=== PATIENT | female | born 1970 | race Caucasian/White ===

== ENCOUNTER → 2020-12-28 14:19 | Outpatient (CLI) | payer BC, SELFPAY ==
[2020-12-28 14:30] LABS: Basophils # 0.1 K/mm3 (0-0.2); Basophils % 1.1 % (0.1-2.0); Eosinophils # 0.1 K/mm3 (0.0-0.4); Eosinophils % 1.3 % (0.1-12.0); Lymphocytes # 1.8 K/mm3 (0.7-4.5); Lymphocytes % 28.2 % (10-50); Mean Corpuscular Hemoglobin 30.2 pg (27.0-31.2); Mean Corpuscular Volume 94.4 fl (81-99); Mean Platelet Volume 8.9 fl (7.4-10.4); Monocytes # 0.3 K/mm3 (0.1-1.0); Monocytes % 4.4 % (1.7-9.3); Platelet Count 322 K/mm3 (142-424); Red Blood Count 4.98 M/mm3 (4.20-5.40); Red Cell Distribution Width 13.1 % (11.5-17.5); White Blood Count 6.2 K/mm3 (4.8-10.8)
[2020-12-28 14:34] LABS: Chloride 105 mmol/L (98-107); Sodium 139 mmol/L (136-145)
[2020-12-28 14:35] LABS: Potassium 4.3 mmoL/L (3.5-5.1)
[2020-12-28 14:37] LABS: Alanine Aminotransferase 19 U/L (12-78); Albumin Level 4.5 g/dl (3.5-5.0); Albumin/Globulin Ratio 1.6 (1.1-1.8); Alkaline Phosphatase 66 U/L (38-126); Anion Gap 13.3 mEq/L (5-15); Aspartate Amino Transferase 29 U/L (14-36); Bilirubin,Total 0.3 mg/dl (0.2-1.3); Blood Urea Nitrogen 9 mg/dl (7-17); Carbon Dioxide 25 mmol/L (22.0-30.0); Estimated Glomerular Filt Rate 89 ml/min (>60); GFR (African American) 108 ML/MIN (>60); Globulin 2.8 g/dL (1.3-3.2); Total Protein,Serum 7.3 g/dl (6.3-8.2)
[2020-12-28 14:38] LABS: Calcium 9.5 mg/dl (8.4-10.2); Chol/HDL Ratio 2.6 (1-3.5); Cholesterol 189 mg/dl (140-200); Glucose 94 mg/dl (74-100); HDL Cholesterol 73 mg/dl (40-60); Triglycerides 196 mg/dl (30-150); VLDL Cholesterol 39 mg/dL (0-40)
[2020-12-28 14:49] LABS: Direct LDL Cholesterol 88.54 mg/dL (100-129)
[2020-12-28 14:56] LABS: Hemoglobin A1C 5.3 % (4.0-6.0)
[2020-12-28 15:08] LABS: Thyroid Stimulating Hormone 4.72 uIU/mL (0.465-4.68)
[2020-12-28 21:43] LABS: 25-OH Vitamin D, Total 31.3 ng/mL (30-100)
== END ==
PROVIDERS: Visit Provider Family Medicine
DX: Z00.00 Encounter for general adult medical examination without abnormal findings (principal); Z76.89 Persons encountering health services in other specified circumstances; I10 Essential (primary) hypertension
CPT/HCPCS: 80053; 80061; 82306; 83036; 84443; 85025

== ENCOUNTER → 2021-11-11 14:10 | Outpatient (CLI) | payer BC, SELFPAY ==
[2021-11-11 18:55] LABS: Basophils # 0.1 K/mm3 (0-0.2); Basophils % 1.3 % (0.1-2.0); Eosinophils # 0.1 K/mm3 (0.0-0.4); Eosinophils % 1.5 % (0.1-12.0); Hematocrit 45.8 % (37.0-47.0); Hemoglobin 15.1 g/dL (12.2-16.2); Lymphocytes # 2.1 K/mm3 (0.7-4.5); Mean Corpuscular Volume 93.8 fl (81-99); Mean Platelet Volume 10.2 fl (7.4-10.4); Monocytes # 0.2 K/mm3 (0.1-1.0); Monocytes % 3.6 % (1.7-9.3); Neutrophils # 3.5 K/mm3 (1.8-7.8); Neutrophils % 58.6 % (37.0-80.0); Platelet Count 303 K/mm3 (142-424); Red Blood Count 4.88 M/mm3 (4.20-5.40); Red Cell Distribution Width 13.3 % (11.5-17.5)
[2021-11-11 19:32] LABS: Alanine Aminotransferase 14 U/L (12-78); Albumin Level 4.3 g/dl (3.5-5.0); Albumin/Globulin Ratio 1.7 (1.1-1.8); Alkaline Phosphatase 61 U/L (38-126); Anion Gap 16.5 mEq/L (5-15); Aspartate Amino Transferase 27 U/L (14-36); Bilirubin,Total 0.4 mg/dl (0.2-1.3); Blood Urea Nitrogen 11 mg/dl (7-17); Carbon Dioxide 24 mmol/L (22.0-30.0); Chloride 101 mmol/L (98-107); Cholesterol 158 mg/dl (140-200); Estimated Glomerular Filt Rate 67 ml/min (>60); GFR (African American) 81 ML/MIN (>60); Globulin 2.6 g/dL (1.3-3.2); Glucose 96 mg/dl (74-100); HDL Cholesterol 52 mg/dl (40-60); Potassium 4.5 mmoL/L (3.5-5.1); Sodium 137 mmol/L (136-145); Total Protein,Serum 6.9 g/dl (6.3-8.2); Triglycerides 112 mg/dl (30-150); VLDL Cholesterol 22 mg/dL (0-40)
[2021-11-11 19:43] LABS: Direct LDL Cholesterol 71.37 mg/dL (100-129)
[2021-11-11 19:50] LABS: T4 (Thyroxine) 10.7 ug/dl (5.53-11.0)
[2021-11-11 20:03] LABS: Thyroid Stimulating Hormone 1.08 uIU/mL (0.465-4.68)
[2021-11-11 21:42] LABS: Hemoglobin A1C 5.3 % (4.0-6.0)
== END ==
PROVIDERS: PCP Family Medicine; Visit Provider Family Medicine
DX: E78.5 Hyperlipidemia, unspecified (principal); Z79.899 Other long term (current) drug therapy
CPT/HCPCS: 80053; 80061; 83036; 84436; 84443; 85025

== ENCOUNTER → 2021-11-18 10:41 | Outpatient (CLI) | payer BC, SELFPAY ==
--- NOTE | 2021-11-18 10:41 | MM_ITS ---
PROCEDURE INFORMATION: Exam: Bilateral Screening 3D Mammography Exam date and time: 11/18/2021 10:40 AM Age: 51 years old Clinical indication: Screening examination TECHNIQUE: Imaging protocol: Bilateral Screening tomosynthesis and 2D mammography including computer-aided detection (CAD) when performed. COMPARISON: 2D SCREENING MAMMOGRAM, BILATERAL 05/22/2020 3:45 PM FINDINGS: MAMMOGRAPHY: Breast composition: The breasts are almost entirely fatty. Mass: None. Architectural distortion: None. Calcifications: No suspicious calcifications. Asymmetric density: None. Skin thickening: None. Axillary adenopathy: None. IMPRESSION: No mammographic evidence of malignancy. Annual screening is recommended unless otherwise clinically indicated. ASSESSMENT: BI-RADS Category 1: Negative
== END ==
PROVIDERS: PCP Family Medicine; Visit Provider Family Medicine
DX: Z12.31 Encounter for screening mammogram for malignant neoplasm of breast (principal)
CPT/HCPCS: 77063; 77067

== ENCOUNTER → 2021-12-17 13:44 | Outpatient (CLI) | payer BC, SELFPAY | PROVIDERS: PCP Family Medicine; Visit Provider Surgery | DX: Z20.822 Contact with and (suspected) exposure to COVID-19 (principal) ==

== ENCOUNTER 2021-12-20 10:56 | Day surgery (SDC) | payer BC, SELFPAY ==
[2021-12-19 11:20] VITALS: BMI 30.2
[2021-12-20 11:05] VITALS: BP 144/75; PULSE 76; RESP 18; TEMP 36.4; O2SAT 99
[2021-12-20 11:27] VITALS: O2SAT 99
--- NOTE | 2021-12-20 11:27 | P.PN_ITS ---
PF[facility] PFS Medical History Cervical cancer Endometriosis History of gastroesophageal reflux (GERD) Hypertension Hypothyroid Polyp, vocal cord Surgical History H/O total hysterectomy [place] teeth removed Family History Mother Liver cancer Father Diabetes Social History Smoking Status: Former smoker alcohol intake: never substance use type: denies use current occupational status: unemployed Travel in the last 8 weeks: None caffeine: Yes [facility] Anesthesia Checklist Patient Identification Patient Identification: Arm Band Structural Data Admitted From: Home Planned Operative Procedure/s: colonoscopy Consent for Planned Operative Procedure(s) Verified: Yes Verified Documents: Surgical Consent and History and Physical NPO Status Verified Time NPO: 00:00 Additional verifications Anesthesia Reactions: No Airway Assessment C-Spine Mobility Assessed: Yes TMJ Mobility Assessed: Yes Dentition: Good Dentition Neurological Assessment Level of Consciousness: Awake and Alert Anesthesia Plan Anesthesia Risk discussed: Yes Anesthesia Plan: Verified ASA Class: II Anesthesia Type: MAC
[2021-12-20 12:14] VITALS: BP 106/60; PULSE 76; RESP 17; TEMP 36.2; O2SAT 95
--- NOTE | 2021-12-20 12:20 | HMH.SCOPE ---
Procedure: Date: 12/20/21 Patient Date of :: 1970 Procedure Performed:: Colonoscopy with polypectomy Indications:: Screening Performing Provider:: Giovani Alan MD Referring Provider:: Dr. Alfonso Sedation:: Monitored anesthesia care Procedure:: After informed consent was obtained the patient was taken to the endoscopy suite. Sedation ensued after the patient was transferred to the left lateral decubitus position. Pulse, blood pressure, and oxygen saturation were monitored throughout the procedure. Digital rectal exam revealed no significant abnormality. The colonoscope was placed in position. The entire colon was evaluated. The colonoscope was carefully removed and the patient was transferred to recovery in stable condition. Please see findings and specimens below for detail. Findings:: Bowel preparation moderate Mild scattered diverticulosis Significant lack of relaxation Fairly tortuous sigmoid colon Polyp at 15 cm Specimens:: Polyp at 15 cm (cold snare) Recommendations:: Timing of repeat colonoscopy is pending pathology but will likely be between 2-3 years. Complications:: No immediate Estimated blood obtained (mL): 1
[2021-12-20 12:24] VITALS: BP 108/68; PULSE 59; RESP 17; O2SAT 96
[2021-12-20 12:34] VITALS: BP 105/58; PULSE 71; RESP 18; O2SAT 95
[2021-12-20 12:44] VITALS: BP 126/82; PULSE 62; RESP 18; O2SAT 96
== END 2021-12-20 12:44 | disposition home or self-care (01) ==
PROVIDERS: PCP Family Medicine; Visit Provider Surgery
PROC: 0DJD8ZZ Inspection of Lower Intestinal Tract, Via Natural or Artificial Opening Endoscopic (ICD-10-PCS; CPT 45385; principal; 2021-12-20 12:30)
DX: Z12.11 Encounter for screening for malignant neoplasm of colon (principal); K63.5 Polyp of colon; Z79.899 Other long term (current) drug therapy
CPT/HCPCS: 45385; J2704

== ENCOUNTER → 2022-06-19 14:25 | Outpatient (CLI) | payer BC, SELFPAY ==
[2022-06-19 15:48] LABS: Thyroid Stimulating Hormone 2.37 uIU/mL (0.465-4.68)
[2022-06-19 16:07] LABS: Vitamin B12 307 pg/mL (239-931)
== END ==
PROVIDERS: PCP Family Medicine; Visit Provider Family Medicine
DX: I10 Essential (primary) hypertension (principal)
CPT/HCPCS: 82607; 84443

== ENCOUNTER → 2022-07-04 11:44 | Outpatient (CLI) | payer BC, SELFPAY ==
[2022-07-04 12:53] LABS: Hemoglobin A1C 5.4 % (4.0-6.0)
== END ==
PROVIDERS: PCP Family Medicine; Visit Provider Family Medicine
DX: I10 Essential (primary) hypertension (principal)
CPT/HCPCS: 36415; 83036

== ENCOUNTER → 2022-07-17 12:59 | Outpatient (CLI) | payer BC, SELFPAY ==
--- NOTE | 2022-07-17 12:59 | MR_ITS ---
FINAL REPORT CLINICAL HISTORY: facial, arm, leg numbness/tingling. headache FINDINGS: Multiplanar MR imaging of the brain was performed without and with contrast. There are multiple small foci of increased T2 signal in the cerebral white matter which may represent mild chronic ischemic/gliotic change, changes of vasculitis or possible demyelination. There is no evidence of intracranial hemorrhage or mass. No abnormal extra-axial fluid collection is seen. The ventricular size is within normal limits. There is no evidence of shift of the midline structures. The posterior fossa and brainstem have an unremarkable appearance. No area of abnormal restricted diffusion is identified. No abnormal contrast enhancement is seen. Normal major vessel vascular flow voids are noted. There is a small retention cyst or polyp in the floor of the maxillary sinus. IMPRESSION: Small foci of increased T2 signal in the cerebral white matter which may represent mild chronic ischemic/gliotic change, changes of vasculitis or possible demyelination. No acute intracranial abnormality. Reviewed, Interpreted and Dictated by Tera Rosen III, MD Transcribed by Nirmala Garcia Authenticated and [facility]
== END ==
PROVIDERS: PCP Family Medicine; Visit Provider Specialist
DX: M79.605 Pain in left leg (principal); R20.0 Anesthesia of skin; R20.2 Paresthesia of skin; R29.898 Other symptoms and signs involving the musculoskeletal system
CPT/HCPCS: 70553; A9576